=== PATIENT | female | born 1985 | race African-American/Black ===

== ENCOUNTER 2017-12-18 14:21 | Inpatient (IN) | payer MEDICAID ==
[~2017-12-18] VITALS: Ht 162.6 cm; Wt 130.6 kg
--- NOTE | ~2017-12-18 | OP ---
PATIENT NAME: RANDY VARGAS MEDICAL RECORD: [id number] :81 LOCATION:[id number] ADMISSION DATE:12/18/17 SURGEON: BLAYNE ENGLAND MD DATE OF OPERATION: 12/23/2017 PREOPERATIVE DIAGNOSES: 1. Vancomycin toxicity. 2. Acute renal failure, requiring hemodialysis. POSTOPERATIVE DIAGNOSES: 1. Vancomycin toxicity. 2. Acute renal failure, requiring hemodialysis. PROCEDURES: 1. Insertion of right internal jugular HemoSplit catheter, which is a tunneled cuffed dual-lumen hemodialysis catheter under fluoroscopic guidance. 2. Immediate surgeon interpretation of the fluoroscopic images. SURGEON: Blayne England MD PANTRY GOODS MAKER: None. BLOOD LOSS: Minimal. ANESTHESIA: Straight local. COMPLICATIONS: None. The patient recently ate some peaches. For this reason, the procedure was performed under local anesthesia. No radiologist was present for this procedure. Static fluoroscopic images were obtained and are kept in the PACS system. The surgeon interpretation of the radiographic images is dictated within the body of this operative note. OPERATIVE COURSE: The patient was conveyed to the operating room urgently on 12/23/2017. The right neck and right chest were sterilely prepped and draped. A local anesthetic was used to infiltrate the skin and subcutaneous tissues at the right upper chest as well as the base of the right neck. Under ultrasonographic guidance, I percutaneously accessed the right internal jugular vein in an antegrade fashion. Guidewire was passed easily. This was visualized under fluoroscopy. A small skin singh was accomplished. A counterincision was accomplished in the right superior infraclavicular chest. I tunneled a 19-cm HemoSplit catheter from the chest incision to the neck incision. Over the guidewire, I dilated to a larger size. Dilator sheath was then advanced over the wire. The dilator and wire were removed. Through the peel-away sheath, the tips of the HemoSplit catheter were advanced. The peel-away sheath was then removed. I then pulled back on the HemoSplit catheter to seat the catheter into the subcutaneous tissues. An image was obtained over the mediastinum. It revealed that the longest tip of the HemoSplit catheter appeared to be within the superior vena cava. Another image was obtained over the right lung apex. There was no radiographic evidence of complication. No evidence of kinking or twisting of the HemoSplit catheter. No pneumothorax. The neck incision was closed with a single interrupted intracuticular 3-0 Vicryl. The flange of the HemoSplit catheter was sutured to the underlying skin with 2-0 nylons. Both OPERATIVE REPORT [id number] HARDEN,NAKEITA lumens of HemoSplit catheter flushed easily and aspirated dark, nonpulsatile blood. I then topped off both lumens in the HemoSplit catheter with appropriate amount of concentrated heparin. Sterile dressings were applied. The patient was then conveyed to post-anesthesia care unit where she was in stable condition. TRANSINT:[id number] Voice Confirmation ID: [id number] DOCUMENT ID: [id number] BLAYNE ENGLAND MD at 1651 CC: SARWAT STANLEY MD and TIMI HOYOS [id number] DICTATION DATE: 12/23/17 1223 COMBUSTION ANALYST: 12/23/17 1310 ADM IN [facility] [address] [id number]
[2017-12-18 21:10] VITALS: BP 150/96
[2017-12-18] MEDS ORDERED: CLOTRIM ANTIFUN15 GM TOPICAL (21:50)
[2017-12-18] MEDS ORDERED: MUPIROCIN22 GM TOPICAL (21:51)
[2017-12-19 02:57] VITALS: BP 150/96; BMI 49.5
[2017-12-19 05:07] VITALS: BP 154/74
[2017-12-19 07:23] LABS: BASOPHILS 0.2 % (0-2); EOSINOPHILS 1.1 % (0-7); HEMATOCRIT 28.2 % (36.0-48.0); HEMOGLOBIN 9.4 g/dL (12-16); IMMATURE GRANULOCYTES 0.7 % (0-5); LYMPHOCYTES 16.5 % (15-50); MCH 26.6 pg (26.0-34.0); MCHC 33.3 g/dL (31.0-37.0); MCV 79.9 fL (80.0-100.0); NEUTROPHILS 74.5 % (40-80); PLATELET COUNT 213 10x3/uL (130-400); RBC 3.53 10x6/uL (4.00-5.40); RDW 13.4 % (11.5-14.5); WBC 8.1 10x3/uL (4.8-10.8)
[2017-12-19 07:36] LABS: ANION GAP 17.2 mmol/L (8-16); BILIRUBIN - TOTAL 0.87 mg/dL (0.2-1.3); CALCIUM 7.9 mg/dL (8.5-10.1); CARBON DIOXIDE 17.4 mmol/L (21.0-32.0); CREATININE - SERUM 6.5 mg/dL (0.6-1.3); POTASSIUM - SERUM 3.6 mmol/L (3.5-5.1); PROTEIN - SERUM 6.4 g/dL (6.4-8.2)
[2017-12-19 07:57] VITALS: BP 158/79
[2017-12-19 15:57] LABS: % SATURATION 24 % (15-55); IRON 34 ug/dl (35-150); TOTAL IRON BIND CAPACITY 138 ug/dl (260-445); UNSAT IRON BIND CAPACITY 104 ug/dl (150-375)
[2017-12-19 21:41] LABS: APPEARANCE HAZY (CLEAR); BILIRUBIN NEGATIVE (NEGATIVE); COLOR YELLOW (YELLOW); GLUCOSE NEGATIVE (NEGATIVE); KETONE NEGATIVE (NEGATIVE); NITRITE NEGATIVE (NEGATIVE); PROTEIN NEGATIVE (NEGATIVE); SPECIFIC GRAVITY 1.005 (1.005-1.020); UROBILINOGEN NORMAL (NORMAL)
[2017-12-19 21:52] LABS: BACTERIA MODERATE /hpf (NONE SEEN); EPITHELIAL CELLS 0-5 /hpf (0-5); GRANULAR CAST RARE /lpf (NONE SEEN); HYALINE CAST OCC /lpf (NONE SEEN); RED CELLS - URINE 0-5 /hpf (0-5); YEAST >1+ WITH HYPHAE /hpf (NONE SEEN)
[2017-12-19 22:12] VITALS: BP 162/100
[2017-12-20 04:27] VITALS: BP 174/74
[2017-12-20 08:14] LABS: BASOPHILS 0.1 % (0-2); HEMOGLOBIN 9.8 g/dL (12-16); IMMATURE GRANULOCYTES 1.1 % (0-5); LYMPHOCYTES 16.7 % (15-50); MCH 27.1 pg (26.0-34.0); MCHC 33.8 g/dL (31.0-37.0); MCV 80.1 fL (80.0-100.0); MEAN PLATELET VOLUME 8.8 fL (7.4-10.4); MONOCYTES 5.8 % (2-11); NEUTROPHILS 75.3 % (40-80); PLATELET COUNT 233 10x3/uL (130-400); RBC 3.62 10x6/uL (4.00-5.40); RDW 13.3 % (11.5-14.5)
[2017-12-20 08:30] LABS: ANION GAP 17.6 mmol/L (8-16); CALCIUM 8.2 mg/dL (8.5-10.1); CARBON DIOXIDE 17.4 mmol/L (21.0-32.0); CREATININE - SERUM 7.3 mg/dL (0.6-1.3)
[2017-12-20 09:19] VITALS: BP 183/97
[2017-12-20 21:44] VITALS: BP 181/94
[2017-12-21 05:39] LABS: BASOPHILS 0.2 % (0-2); EOSINOPHILS 1.1 % (0-7); HEMATOCRIT 27.7 % (36.0-48.0); HEMOGLOBIN 9.3 g/dL (12-16); IMMATURE GRANULOCYTES 0.9 % (0-5); MCH 26.7 pg (26.0-34.0); MCHC 33.6 g/dL (31.0-37.0); MCV 79.6 fL (80.0-100.0); NEUTROPHILS 73.8 % (40-80); PLATELET COUNT 219 10x3/uL (130-400); RBC 3.48 10x6/uL (4.00-5.40); RDW 13.8 % (11.5-14.5)
[2017-12-21 05:49] LABS: CALC OSMOLALITY 292 mosm/kg (275-300); CALCIUM 7.8 mg/dL (8.5-10.1); CARBON DIOXIDE 18.5 mmol/L (21.0-32.0); CHLORIDE - SERUM 112 mmol/L (98-107); CREATININE - SERUM 0.8 mg/dL (0.6-1.3); GLUCOSE 122 mg/dL (74-106); POTASSIUM - SERUM 3.9 mmol/L (3.5-5.1); SODIUM 142 mmol/L (136-145); UREA NITROGEN 39 mg/dL (7-18); eGFR NON AFRICAN AMERICAN 87 mL/min (90-120)
[2017-12-21 08:14] VITALS: BP 107/76
[2017-12-21 12:02] VITALS: BP 168/96
[2017-12-21 13:19] LABS: ANION GAP 15.9 mmol/L (8-16); CALCIUM 8.3 mg/dL (8.5-10.1); CARBON DIOXIDE 19.1 mmol/L (21.0-32.0)
[2017-12-21 13:20] LABS: CREATININE - SERUM 7.3 mg/dL (0.6-1.3)
[2017-12-21 22:14] VITALS: BP 185/86
[2017-12-22 05:49] VITALS: BP 162/83
[2017-12-22 06:00] LABS: BASOPHILS 0.2 % (0-2); EOSINOPHILS 1.3 % (0-7); IMMATURE GRANULOCYTES 1.5 % (0-5); LYMPHOCYTES 15.3 % (15-50); MCH 26.6 pg (26.0-34.0); MCHC 33.3 g/dL (31.0-37.0); MCV 79.9 fL (80.0-100.0); MONOCYTES 7.2 % (2-11); NEUTROPHILS 74.5 % (40-80); PLATELET COUNT 241 10x3/uL (130-400); RBC 3.38 10x6/uL (4.00-5.40); RDW 13.7 % (11.5-14.5); WBC 10.3 10x3/uL (4.8-10.8)
[2017-12-22 06:11] LABS: ANION GAP 17.6 mmol/L (8-16); CARBON DIOXIDE 18.7 mmol/L (21.0-32.0); CREATININE - SERUM 7.2 mg/dL (0.6-1.3); POTASSIUM - SERUM 4.3 mmol/L (3.5-5.1)
[2017-12-22 08:24] VITALS: BP 167/80
[2017-12-22 12:42] VITALS: BP 150/72
[2017-12-22 20:00] VITALS: BP 208/111
[2017-12-23 06:02] VITALS: BP 174/79
[2017-12-23 06:10] LABS: BASOPHILS 0.4 % (0-2); EOSINOPHILS 1.1 % (0-7); HEMATOCRIT 28.5 % (36.0-48.0); HEMOGLOBIN 9.5 g/dL (12-16); IMMATURE GRANULOCYTES 1.8 % (0-5); LYMPHOCYTES 15.4 % (15-50); MCH 26.5 pg (26.0-34.0); MCHC 33.3 g/dL (31.0-37.0); MCV 79.6 fL (80.0-100.0); MEAN PLATELET VOLUME 8.9 fL (7.4-10.4); MONOCYTES 7.2 % (2-11); NEUTROPHILS 74.1 % (40-80); PLATELET COUNT 287 10x3/uL (130-400); RBC 3.58 10x6/uL (4.00-5.40); RDW 13.7 % (11.5-14.5); WBC 11.1 10x3/uL (4.8-10.8)
[2017-12-23 06:35] LABS: CALCIUM 8.3 mg/dL (8.5-10.1); CREATININE - SERUM 7.5 mg/dL (0.6-1.3); VANCOMYCIN - RANDOM 33.6 ug/mL (10.0-20.0)
[2017-12-23 08:18] LABS: FOLATE (FOLIC ACID) - SERUM 9.6 ng/mL (>3.0)
[2017-12-23 08:23] VITALS: BP 189/101
[2017-12-23 13:28] VITALS: BP 177/96
[2017-12-23 14:29] VITALS: Ht 162.6 cm; Wt 130.6 kg
[2017-12-23 21:13] VITALS: BP 105/61
[2017-12-24 05:57] LABS: BASOPHILS 0.3 % (0-2); EOSINOPHILS 0.9 % (0-7); HEMATOCRIT 27.8 % (36.0-48.0); HEMOGLOBIN 9.4 g/dL (12-16); IMMATURE GRANULOCYTES 1.7 % (0-5); MCH 26.5 pg (26.0-34.0); MCHC 33.8 g/dL (31.0-37.0); MCV 78.3 fL (80.0-100.0); MEAN PLATELET VOLUME 8.7 fL (7.4-10.4); NEUTROPHILS 77.1 % (40-80); PLATELET COUNT 235 10x3/uL (130-400); RBC 3.55 10x6/uL (4.00-5.40); RDW 13.8 % (11.5-14.5); WBC 11.3 10x3/uL (4.8-10.8)
[2017-12-24 06:26] LABS: ANION GAP 19.4 mmol/L (8-16); CALCIUM 8.1 mg/dL (8.5-10.1); CARBON DIOXIDE 17.6 mmol/L (21.0-32.0); CREATININE - SERUM 6.8 mg/dL (0.6-1.3); VANCOMYCIN - RANDOM 39.2 ug/mL (10.0-20.0)
[2017-12-24 09:30] VITALS: BP 188/89
[2017-12-24 18:35] VITALS: BP 146/84
[2017-12-25] VITALS (8 sets, daily range): BP systolic 125–180; BP diastolic 50–94
[2017-12-25 05:00] LABS: HEMATOCRIT 27.1 % (36.0-48.0); HEMOGLOBIN 9.5 g/dL (12-16); LYMPHOCYTES 11.5 % (15-50); MCHC 35.1 g/dL (31.0-37.0); MEAN PLATELET VOLUME 7.7 fL (7.4-10.4); NEUTROPHILS 79.9 % (40-80); PLATELET COUNT 246 10x3/uL (130-400); RBC 3.52 10x6/uL (4.00-5.40); RDW 13.2 % (11.5-14.5); WBC 10.5 10x3/uL (4.8-10.8)
[2017-12-25 05:20] LABS: ALBUMIN 2.4 g/dL (3.4-5.0); BILIRUBIN - TOTAL 0.6 mg/dL (0.2-1.3); CALCIUM 8.1 mg/dL (8.5-10.1); CREATININE - SERUM 4.6 mg/dL (0.6-1.3); PROTEIN - SERUM 7.1 g/dL (6.4-8.2); VANCOMYCIN - RANDOM 29.3 ug/mL (10.0-20.0)
[2017-12-25 05:21] LABS: ANION GAP 13.2 mmol/L (8-16); POTASSIUM - SERUM 3.2 mmol/L (3.5-5.1)
[2017-12-25 16:14] LABS: HEP B CORE AB TOTAL Negative (Negative); HEPATITIS C ANTIBODY <0.1 (0.0-0.9)
[2017-12-26 00:54] VITALS: BP 132/54
[2017-12-26 05:04] VITALS: BP 140/77
[2017-12-26 06:17] LABS: BASOPHILS 0.4 % (0-2); HEMATOCRIT 29.7 % (36.0-48.0); IMMATURE GRANULOCYTES 1.3 % (0-5); LYMPHOCYTES 12.2 % (15-50); MCH 26.7 pg (26.0-34.0); MCHC 33.7 g/dL (31.0-37.0); MEAN PLATELET VOLUME 8.9 fL (7.4-10.4); MONOCYTES 9.2 % (2-11); NEUTROPHILS 75.9 % (40-80); RBC 3.74 10x6/uL (4.00-5.40); RDW 13.3 % (11.5-14.5); WBC 12.5 10x3/uL (4.8-10.8)
[2017-12-26 06:25] LABS: MCV 79.4 fL (80.0-100.0); PLATELET COUNT 178 10x3/uL (130-400)
[2017-12-26 06:32] LABS: ALBUMIN 2.5 g/dL (3.4-5.0); ANION GAP 11.8 mmol/L (8-16); BILIRUBIN - TOTAL 0.65 mg/dL (0.2-1.3); CALCIUM 8.2 mg/dL (8.5-10.1); CARBON DIOXIDE 28.3 mmol/L (21.0-32.0); CREATININE - SERUM 3.9 mg/dL (0.6-1.3); POTASSIUM - SERUM 3.1 mmol/L (3.5-5.1); PROTEIN - SERUM 7.3 g/dL (6.4-8.2); VANCOMYCIN - RANDOM 23.6 ug/mL (10.0-20.0)
[2017-12-26 08:46] VITALS: BP 188/87
[2017-12-26 19:48] LABS: ANION GAP 10.2 mmol/L (8-16); CALCIUM 8.2 mg/dL (8.5-10.1); CARBON DIOXIDE 29.4 mmol/L (21.0-32.0); CREATININE - SERUM 3.8 mg/dL (0.6-1.3)
[2017-12-26 19:50] LABS: POTASSIUM - SERUM 3.6 mmol/L (3.5-5.1)
[2017-12-26 20:00] VITALS: BP 154/94
[2017-12-27 04:56] VITALS: BP 146/97
[2017-12-27 06:08] LABS: BASOPHILS 0.6 % (0-2); EOSINOPHILS 1.4 % (0-7); HEMATOCRIT 32.2 % (36.0-48.0); HEMOGLOBIN 10.8 g/dL (12-16); IMMATURE GRANULOCYTES 0.6 % (0-5); LYMPHOCYTES 14.6 % (15-50); MCH 26.7 pg (26.0-34.0); MCHC 33.5 g/dL (31.0-37.0); MCV 79.7 fL (80.0-100.0); MEAN PLATELET VOLUME 9.4 fL (7.4-10.4); MONOCYTES 10.2 % (2-11); NEUTROPHILS 72.6 % (40-80); PLATELET COUNT 203 10x3/uL (130-400); RBC 4.04 10x6/uL (4.00-5.40); RDW 13.5 % (11.5-14.5)
[2017-12-27 06:26] LABS: ALBUMIN 2.8 g/dL (3.4-5.0); ANION GAP 14.4 mmol/L (8-16); BILIRUBIN - TOTAL 0.68 mg/dL (0.2-1.3); CALCIUM 8.7 mg/dL (8.5-10.1); CARBON DIOXIDE 26.3 mmol/L (21.0-32.0); CREATININE - SERUM 4.2 mg/dL (0.6-1.3); POTASSIUM - SERUM 3.7 mmol/L (3.5-5.1); PROTEIN - SERUM 7.9 g/dL (6.4-8.2); VANCOMYCIN - RANDOM 21.2 ug/mL (10.0-20.0)
[2017-12-27 10:08] VITALS: BP 127/82
[2017-12-27 20:00] VITALS: BP 141/90
[2017-12-28 05:24] VITALS: BP 139/90
[2017-12-28 05:59] LABS: BASOPHILS 0.7 % (0-2); EOSINOPHILS 1.2 % (0-7); HEMOGLOBIN 10.2 g/dL (12-16); IMMATURE GRANULOCYTES 0.9 % (0-5); LYMPHOCYTES 19.6 % (15-50); MCH 26.5 pg (26.0-34.0); MCHC 32.9 g/dL (31.0-37.0); MCV 80.5 fL (80.0-100.0); MEAN PLATELET VOLUME 9.4 fL (7.4-10.4); MONOCYTES 6.9 % (2-11); NEUTROPHILS 70.7 % (40-80); PLATELET COUNT 188 10x3/uL (130-400); RBC 3.85 10x6/uL (4.00-5.40); RDW 13.5 % (11.5-14.5); WBC 11.3 10x3/uL (4.8-10.8)
[2017-12-28 06:33] LABS: ALBUMIN 2.8 g/dL (3.4-5.0); ANION GAP 15.6 mmol/L (8-16); BILIRUBIN - TOTAL 0.48 mg/dL (0.2-1.3); CALCIUM 8.3 mg/dL (8.5-10.1); CARBON DIOXIDE 26.1 mmol/L (21.0-32.0); CREATININE - SERUM 5.2 mg/dL (0.6-1.3); POTASSIUM - SERUM 3.7 mmol/L (3.5-5.1); VANCOMYCIN - RANDOM 16.2 ug/mL (10.0-20.0)
[2017-12-28 09:21] VITALS: BP 155/87
[2017-12-28 17:49] VITALS: BP 132/86
[2017-12-28 20:00] VITALS: BP 131/62
[2017-12-29 06:38] LABS: BASOPHILS 0.6 % (0-2); EOSINOPHILS 1.3 % (0-7); HEMATOCRIT 31.3 % (36.0-48.0); HEMOGLOBIN 10.5 g/dL (12-16); IMMATURE GRANULOCYTES 0.6 % (0-5); LYMPHOCYTES 15.9 % (15-50); MCH 26.8 pg (26.0-34.0); MCHC 33.5 g/dL (31.0-37.0); MCV 79.8 fL (80.0-100.0); MEAN PLATELET VOLUME 9.9 fL (7.4-10.4); MONOCYTES 5.7 % (2-11); NEUTROPHILS 75.9 % (40-80); PLATELET COUNT 180 10x3/uL (130-400); RBC 3.92 10x6/uL (4.00-5.40); RDW 13.4 % (11.5-14.5); WBC 12.6 10x3/uL (4.8-10.8)
[2017-12-29 07:06] LABS: ALBUMIN 2.8 g/dL (3.4-5.0); ANION GAP 14.9 mmol/L (8-16); BILIRUBIN - TOTAL 0.59 mg/dL (0.2-1.3); CALCIUM 8.5 mg/dL (8.5-10.1); CARBON DIOXIDE 27.4 mmol/L (21.0-32.0); CREATININE - SERUM 4.5 mg/dL (0.6-1.3); POTASSIUM - SERUM 3.3 mmol/L (3.5-5.1); PROTEIN - SERUM 8.1 g/dL (6.4-8.2)
[2017-12-29 10:30] VITALS: BP 139/77
[2017-12-29] MEDS ORDERED: NICODERM C1 PATCH .1 TRANSDERM (11:56)
[2017-12-29] MEDS ORDERED: NORVASC10 MG PO (11:57)
[2017-12-29] MEDS ORDERED: PROTONIX40 MG PO (11:57)
[2017-12-29 13:24] VITALS: BP 140/99
== END 2017-12-29 15:46 | disposition home health service (06) | DRG 683 ==
LOC: D.M2 14:21 → D.MS 16:07
PROVIDERS: Family Medicine; Internal Medicine Nephrology; Surgery
PROC: B5181ZA Fluoroscopy of Superior Vena Cava using Low Osmolar Contrast, Guidance (ICD-10-PCS; 2017-12-23)
PROC: 02HV33Z Insertion of Infusion Device into Superior Vena Cava, Percutaneous Approach (ICD-10-PCS; principal; 2017-12-23 16:30)
PROC: 5A1D70Z Performance of Urinary Filtration, Intermittent, Less than 6 Hours Per Day (ICD-10-PCS; 2017-12-24)
DX: N17.9 Acute kidney failure, unspecified (principal); E44.0 Moderate protein-calorie malnutrition; Z68.42 Body mass index [BMI] 45.0-49.9, adult; F17.203 Nicotine dependence unspecified, with withdrawal; T36.8X5A Adverse effect of other systemic antibiotics, initial encounter; F41.8 Other specified anxiety disorders; M79.3 Panniculitis, unspecified; K21.9 Gastro-esophageal reflux disease without esophagitis; E66.01 Morbid (severe) obesity due to excess calories; I10 Essential (primary) hypertension